=== PATIENT | male | born 1975 | race Caucasian/White ===

== ENCOUNTER 2020-08-23 12:30 | Outpatient (CLI) | payer BC, SELFPAY ==
[2020-08-24 19:53] LABS: SARS-CoV-2 RNA PCR Negative
== END 2020-08-23 12:31 | disposition home or self-care (01) ==
LOC: CHSLAB 12:36
PROVIDERS: PCP Family Medicine; Visit Provider Family Medicine
DX: Z20.828 Contact with and (suspected) exposure to other viral communicable diseases (principal)
CPT/HCPCS: 87635; C9803; U0003

== ENCOUNTER 2020-11-08 16:18 | Outpatient (CLI) | payer BC, SELFPAY ==
[2020-11-08 17:33] LABS: Influenza Control Valid (Valid); SARS-CoV-2 Ag Positive (Negative)
== END 2020-11-08 16:19 | disposition home or self-care (01) ==
LOC: CHSLAB 16:27
PROVIDERS: PCP Family Medicine; Visit Provider Family Medicine
DX: U07.1 COVID-19 (principal); J00 Acute nasopharyngitis [common cold]
CPT/HCPCS: 87426; 87804; C9803

== ENCOUNTER 2021-11-13 09:43 | Outpatient (CLI) | payer BC, SELFPAY ==
--- NOTE | ~2021-11-13 | XR_ITS ---
XR_CERV2-3V_CR DATE: 11/13/2021 10:06 INDICATION: Severe left-sided neck pain, some right-sided neck pain for 3 months TECHNIQUE: AP, open-mouth, lateral views COMPARISON: None FINDINGS: There is straightening of cervical spine. There is minimal approximately 1 to 1.5 mm anterolisthesis at C2-3 and C4-5. There is moderate degenerative disc disease at C3-4. There is mildly severe degenerative disc disease at C5-6 and C6-7. There is prominent uncovertebral joint spurring at C5-6 and C6-7. C1 and C2 are normally aligned and the odontoid process is intact. No fracture or dislocation, locked facet or prevertebral soft tissue swelling is detected.. IMPRESSION: Straightening, which may indicate muscle spasm 1.-1.5 mm anterolisthesis at C2-3 and C4-5 Moderate degenerative disc disease at C3-4 Mildly severe degenerative disc disease and prominent uncovertebral joint spurring at C5-6 and C6-7 Reviewed, dictated and finalized at Location A. Reviewed, dictated and finalized at location B. GER CHEMICAL IMPRESSION: Straightening, which may indicate muscle spasm 1.-1.5 mm anterolisthesis at C2-3 and C4-5 Moderate degenerative disc disease at C3-4 Mildly severe degenerative disc disease and prominent uncovertebral joint spurr ing at C5-6 and C6-7
--- NOTE | ~2021-11-13 | XR_ITS ---
XR lumbar spine 2-3V DATE: 11/13/2021 10:08 INDICATION: Low back pain for 3 months TECHNIQUE: AP, lateral, coned lateral lumbosacral views COMPARISON: None FINDINGS: There is grade 1 anterolisthesis at L4-5 due to degenerative change at the apophyseal joint s. There is moderately prominent degenerative disc disease throughout the lumbar interspaces, relatively sparing L5-S1. No fracture or bone destruction is evident. The included lower thoracic and lumbar pedicles are intac t. There is a transitional first sacral vertebra. The sacroiliac joints are normal. IMPRESSION: Moderate degenerative disc disease of the lumbar spine Grade 1 anterolisthesis at L4-5 due to degenerative change at the apophyseal joints Transitional first sacral vertebra Reviewed, dictated and finalized at location B. ERY MACHINE OPERATOR IMPRESSION: Moderate degenerative disc disease of the lumbar spine Grade 1 anterolisthesis at L4-5 due to degenerative change at the apophyseal etta ints Transitional first sacral vertebra
== END 2021-11-13 09:44 | disposition home or self-care (01) ==
LOC: CHSIMG 09:47
PROVIDERS: PCP Family Medicine; Visit Provider Family Medicine
DX: M54.2 Cervicalgia (principal); M54.50 Low back pain, unspecified
CPT/HCPCS: 72040; 72100

== ENCOUNTER 2022-01-23 19:36 | Outpatient (CLI) | payer BC, SELFPAY ==
--- NOTE | ~2022-01-23 | XR_ITS ---
EXAM: XR cervical spine 4-5V HISTORY: LT sided neck pain x 6 mo NKI COMPARISON: 11/13/2021 FINDINGS: Craniocervical association and atlantoaxial joint are aligned. No prevertebral soft tissue swelling. The vertebral body heights are maintained. Stable minimal degenerative listheses, degenera tive disc disease, and degenerative uncovertebral joint changes. IMPRESSION: No acute osseous finding or traumatic malalignment in the cervical spine. Reviewed, dictated and finalized at location K.
[2022-01-23 19:52] LABS: Basophils Absolute Auto 0.09 K/mm3 (0.00-0.10); Basophils Percent Auto 1.2 % (0.0-1.0); Eosinophils Percent Auto 7.8 % (1.0-6.0); Hematocrit 43.6 % (40.0-54.0); Hemoglobin 14.5 g/dL (14.0-18.0); Immature Granulocyte Absolute 0.05 K/mm3 (0.00-0.00); Immature Granulocyte Percent A 0.7 % (0.0-0.0); Lymphocytes Absolute Auto 2.15 K/mm3 (1.10-4.50); Mean Corpuscular HGB Conc 33.3 g/dL (32.0-36.0); Mean Corpuscular Hemoglobin 31.1 pg (27.0-31.0); Mean Corpuscular Volume 93.6 fL (78.0-102.0); Mean Platelet Volume 10.2 fl (8.7-11.0); Monocytes Absolute Auto 0.65 K/mm3 (0.10-0.90); Monocytes Percent Auto 8.5 % (2.0-11.0); Neutrophils Absolute Auto 4.2 K/mm3 (1.7-7.2); Neutrophils Percent Auto 53.8 % (50.0-70.0); Platelet Count Result 350 K/mm3 (150-420); Red Blood Count 4.66 M/mm3 (4.70-6.10); Red Cell Distribution Width 13.2 % (11.6-14.4); White Blood Count 7.7 K/mm3 (4.8-10.8)
[2022-01-23 20:26] LABS: Anion Gap 6 mmol/L (8-16); Blood Urea Nitrogen 21 mg/dL (7-18); Calcium 9.4 mg/dL (8.5-10.1); Carbon Dioxide 31 mmol/L (21-32); Chloride 103 mmol/L (98-108); Estimated Glomerular Filt Rate > 60; Glucose 82 mg/dL (70-99); Osmolality Calculated 292 mOsm/kg (285-295); Potassium 4.3 mmol/L (3.5-5.1); Sodium 140 mmol/L (136-145)
[2022-01-23 20:28] LABS: CRP < 0.2 mg/dL (0.0-0.9)
[2022-01-23 21:05] LABS: Erythrocyte Sedimentation Rate 8 mm/hr (0-15)
== END 2022-01-23 19:37 | disposition home or self-care (01) ==
LOC: CHSLAB 19:38
PROVIDERS: PCP Family Medicine; Visit Provider Family Medicine
DX: M54.2 Cervicalgia (principal); R53.83 Other fatigue
CPT/HCPCS: 36415; 72050; 80048; 85025; 85652; 86140

== ENCOUNTER 2024-10-12 09:01 | Outpatient (CLI) | payer BC, SELFPAY ==
--- NOTE | ~2024-10-12 | XR_ITS ---
Left Shoulder Technique: AP and scapular Y views were obtained. Clinical History: Pain Findings: No fracture or dislocation is seen. Osseous alignment is anatomic. The glenohumeral and acr omioclavicular joint spaces are preserved. Soft tissues are unremarkable. Impression: Unremarkable left shoulder radiographs. Reviewed, dictated and finalized at [facility]. SIX SIGMA SENIOR SPECIALIST Impression: Unremarkable left shoulder radiographs.
--- NOTE | ~2024-10-12 | XR_ITS ---
Left elbow Technique: AP, oblique, and lateral views were obtained. Clinical History: Pain Findings: No acute fracture or dislocation is seen. Osseous alignment is anatomic. Joint spaces are p reserved. There is no displacement of the fat pads, and soft tissues are unremarkable. Impression: Unremarkable radiographs. Reviewed, dictated and finalized at [facility]. T ETIOLOGIST Impression: Unremarkable radiographs.
== END 2024-10-12 09:02 | disposition home or self-care (01) ==
PROVIDERS: PCP Family Medicine; Visit Provider Family Medicine
DX: M25.512 Pain in left shoulder (principal); M25.522 Pain in left elbow
CPT/HCPCS: 73030; 73080

== ENCOUNTER 2024-12-01 13:22 | Outpatient (CLI) | payer BC, SELFPAY ==
--- OUTSIDE RECORDS SUMMARY | 2024-12-01 13:27 | XMS_ITS | Referral Summary ---
Author Organization [facility] Address [address] [place] [address] Care Team Providers Care Motor Vehicle Compliance Analyst Name Role Phone Pollo Werner MD Primary Care Provide r Allergies Active Allergy Reactions Criticality Noted Date Comments Ketorolac Syncope High 01/22/2022 Medications lidocaine (LIDODERM) 5 % Place 1 patch on the skin daily Remove & discard patch within 12 hours or as directed by . 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 Gender Identity Not on file Sexual Orientation Not on file Last Filed Vital Signs Vital Sign Reading Time Taken Comments Blood Pressure 118/59 01/23/2022 12:00 AM CDT Pulse 59 01/23/2022 12:00 AM CDT Temperature 36.6 C (97.8 F) 01/22/2022 9:50 PM CDT Respiratory Rate 18 01/22/2022 11:1 0 PM CDT Oxygen Saturation 99% 01/23/2022 12: 00 AM CDT Inhaled Oxygen Concentration - - Weight 96.6 kg (212 lb 15.4 oz) 01/22/2022 9:50 PM CDT Height 185.4 cm (6' 1 ) 01/22/2022 9:50 PM CDT Body Mass Index 28.1 01/22/2022 9:50 PM CDT Plan of Treatment Not on file Insurance [employer] OOS ANTH PREFERRED Care Teams Motor Vehicle Compliance Analyst Relationship Specialty Start Date End Date Pollo Werner MD [address] [place] [address] PCP - General Family Medicine 01/22/22
--- OUTSIDE RECORDS SUMMARY | 2024-12-01 13:27 | XMS_ITS | Continuity of Care Document ---
Author Organization [facility] Address [address] [place] [address] Phone Care Team Providers Care Dramatic Teacher Name Role Phone Armando Darling MD Unavailable Unavailable Allergies, Adverse Reactions, Alerts Substance Reaction Status Criticality KETOROLAC TROMETHAMINE Active No In formation Medications Medication Instructions Dosage Effective Dates (start - stop) Status Comments meloxicam 15 mg tablet take 1 tablet (15MG) by oral route every day with food - Active Keflex 500 mg capsule take 1 capsule (500MG) by oral route 4 times daily for 5 days - Active tramadol 50 mg tablet take 1-2 tablets by oral route every 6 hours as needed - Active meloxicam 15 mg tablet take 1 tablet (15MG) by oral route every day with food - No Longer Active Procedures Procedure Date RADEX KNE COMPL 4/MORE VIEWS OFFICE/OUTPATIENT VISIT EST OFFICE/OUTPATIENT VISIT EST POSTOP FOLLOW-UP VISIT POSTOP FOLLOW-UP VISIT POSTOP FOLLOW-UP VISIT OFFICE/OUTPATIENT VISIT EST MRI ANY JT LXTR C-MATRL RADEX KNE COMPL 4/MORE VIEWS POSTOP FOLLOW-UP VISIT POSTOP FOLLOW-UP VISIT POSTOP FOLLOW-UP VISIT RADEX KNE COMPL 4/MORE VIEWS POSTOP FOLLOW-UP VISIT POSTOP FOLLOW-UP VISIT OFFICE/OUTPATIENT VISIT NEW Advance Directives Directive Yes / No Effective Date File Name No Information Encounters Encounter Description Practice Location Reason(s) For Visit Diagnoses Date Provider Providers Copied on Encounter OFFICE/OUTPAT IENT VISIT EST [facility] , [address] [address], [place], [address], [place] tel:[phone] [facility] Pain in right kneeHistory of torn meniscus of right knee Jul-3 1-201 6 Dusek Armando. [address] [facility], [place], [place], [id number]. tel:[phone] OFFICE/OUTPAT IENT VISIT EST [facility] , [address] [address], [place], [address], [place] tel:[phone] [facility] Cystic meniscus, unspecified meniscus, left knee Apr- 2-201 6 Dusek Armando. [address] [facility], [place], [place], [address]. tel:[phone] [facility] , [address] [address], [place], [address], [place] tel:[phone] [facility] No Information Mar-2 4-201 6 Christopher Maharaj. [address] [facility] [address], [place], [place], [address]. tel:[phone] [facility] , [address], [address], [place] tel:[phone] [facility] Cystic meniscus, unspecified meniscus, left knee Dec-1 5-201 6 Dusek Armando. [address] [facility], [place], [place], [address]. tel:[phone] [facility] , [address], [address], [place] tel:[phone] [facility] Cystic meniscus, unspecified meniscus, left kneeHistory of torn meniscus of right knee Fe- 6-201 6 Dusek Armando. [address] [place], [place], [address]. tel:[phone] [facility] , [address], [address], [place] tel:[phone] [facility] Cystic meniscus, unspecified meniscus, left knee 5-201 6 Dusek Armando. [address] [facility] [place], [place], [address]. tel:[phone] OFFICE/OUTPAT IENT VISIT EST [facility] , [address] [address], [place], [address], [place] tel:[phone] [facility] History of torn meniscus of right kneeCyst of meniscus of right knee Aug-2 0-201 5 Dusek Armando. [address] [facility], [place], [place], [address]. tel:[phone] [facility] , [address] [place] [address], [address], [place] tel:[phone] [facility] No Information 0-201 5 No Information Referring Provider: Armando Darling, [address] [facility], [place], [address] . tel:[phone] [facility] , [address] [place] [address], [address], [place] tel:[phone] [facility] Follow Up of R Knee (chief complaint) Pain in right kneeHistory of torn meniscus of right knee Aug-0 2-201 5 Dusek Armadno. [address] [facility], [place], [place], [address]. tel:[phone] [facility] , [address] [place] [address], [address], [place] tel:[phone] [facility] History of torn meniscus of right knee 5-201 5 Dusek Armando. [address] [facility] [address], [place], [address]. tel:[phone] [facility] , [address] [place] [address], [address], [place] tel:[phone] [facility] knee torn meniscus Sep- 7-201 5 Dusek Armando. [address] [place], [place], [address]. tel:[phone] [facility] , [address], [facility], tel:[phone] [facility] Pain in joint involving lower leg 5 Dusek Armando. [address] [place], [place], [address]. tel:[phone] [facility] , [address], [facility], tel:[phone] [facility] knee torn meniscus 5 Dusek Armando. [address] [place], [place], [address]. tel:[phone] OFFICE/OUTPAT IENT VISIT NEW [facility] , [address] [place] [address], [facility], tel:[phone] [facility] R knee pain (chief complaint) knee sprain 5 Dusek Armando. [address] [place], [place], [address]. tel:[phone] Family History Family Member Type Diagnosis Age At Onset Father Problem (finding) Maternal history of sherie betes mellitus Father Problem (finding) malignant neoplasm of s kin Payers Payer name Insurance type Covered libertarian ID Authoriza tion(s) No Information Social History Type Description Quantity Date Captured Comments Alcohol Use Details Unknown Caffeine Use Details Unknown Tobacco Use Status No Information Smoking Status No Information Sex Male Chief Complaint And Reason For Visit No Information Reason For Referral Reason For Referral No Information Plan Of Treatment Date Type Action Status Referral Ordered: RADEX KNE COMPL 4/MORE VIEWS ordered Referral Ordered: CT Guided Needle Biopsy RT knee ordered Referral Ordered: RADEX KNE COMPL 4/MORE VIEWS RT knee ordered Referral Ordered: RADEX KNE COMPL 4/MORE VIEWS RT ordered Referral Ordered: MRI ANY JT LXTR C-MATRL RT knee ordered History Of Present Illness Encounter Date Complaint History Of Prese nt Illness Follow Up of R Knee R knee pain Functional Status Date Functional Assessmen t No Information Instructions Date Instruction Additional Infor mation Take medication as directed. Rel ated to knee torn meniscus Discussed treatment options Rela merritt to Pain in joint involving lower leg Assessments Type Assessment Date assessment Pain in right knee assessment History of torn meniscus of righ t knee Patient Care Teams Name Effective Dates (start - stop) Status Members No Information
--- OUTSIDE RECORDS SUMMARY | 2024-12-01 13:27 | XMS_ITS | Continuity of Care Document ---
Author Organization [facility] Address [address] [place] [address] Phone Care Team Providers Care Med Spa Manager Name Role Phone Isidoro Palmer MD Unavailable Unavailable Advance Directives Directive Yes / No Effective Date File Name No Information Encounters Encounter Description Practice Location Reason(s) For Visit Diagnoses Date Provider Providers Copied on Encounter [facility], [address], [place], [place], [address], tel:[phone] [facility] No Information Spencer Chaudhry. [address] , [place], [place], [id number], [place]. tel:[phone] Referring Provider: Armando Darling, [address], [place], [address]. tel:[phone] Family History Family Member Type Diagnosis Age At Onset No Information Payers Payer name Insurance type Covered libertarian ID Authoriza tison(s) ESIS [id number] Social History Type Description Quantity Date Captured Comments Sex Male Smoking Status No Information Chief Complaint And Reason For Visit No Information Reason For Referral Reason For Referral No Information History Of Present Illness Encounter Date Complaint History Of Prese nt Illness No Information Functional Status Date Functional Assessmen t No Information Instructions Date Instruction Additional Infor mation No Information Assessments Type Assessment Date No Information Patient Care Teams Name Effective Dates (start - stop) Status Members No Information
--- OUTSIDE RECORDS SUMMARY | 2024-12-01 13:27 | XMS_ITS | Clinical Summary ---
Author Organization [facility] Address [address] [place] [address] Care Team Providers Care Emts Name Role Phone Pollo Werner MD Primary [...] for muscle spasm 30 tablet 01/23/2022 Active Surgical History Surgery Date Site/Laterality Comments [place] RPR UMBILICAL HERNIA < 5 YRS REDUCIBLE Umbilical Hernia Repair - (Added by TW Conv) MENISCUS SURGERY Medical History Medical History Date Comments Personal history of other di seases of the circulatory system History of varicose veins - (Added by Conv) Meningitis Meniscus degeneration Family History Medical History Relation Name Comments Arthritis Father Family history of arthritis - (Added by TW Conv) Cancer Father Family history of malignant neoplasm - (Added by TW Conv) Diabetes Father Family history of diabetes mellitus - (Added by TW Conv) Relation Name Status Comments Father Social History Tobacco Use Types Packs/Day Years Used Date Smoking Tobacco: Never Sex and Gender Information Value Date Recorded Sex Assigned at Not on file 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 Gender Identity Not on file Sexual Orientation Not on file Obstetrics History Last Filed Vital Signs Vital Sign Reading [...] 01/22/2022 9:50 PM CDT Plan of Treatment Health Maintenance Due Date Last Done Comments Colon Cancer Screening-Colonoscopy 1977 Depression Screening 1977 Hepatitis C Screening 1977 Regular Well Visit/Exam 18-64 1995 Covid-19 Vaccine (2 - 2023-2 5 season) 2024 03/17/2021 Influenza Vaccine (#1) 2024 8, 08/22/2015, 07/12/2014 DTaP/Tdap/Td Vaccine (2 - Td or Tdap) 06/02/2028 06/02/2018 Hepatitis B Screening Completed 08/30/1996 , 11/05/1995, 09/22/1995 Pneumococcal vaccine <65 Aged Out No longer eligible based on patient's age to complete this topic Insurance [employer] OOS TANJA PREFERRED Care Teams Emts Relationship Specialty Start Date End Date Pollo Werner MD [address] [place] [address] PCP - General Family Medicine 01/22/22
--- OUTSIDE RECORDS SUMMARY | 2024-12-01 13:27 | XMS_ITS | Clinical Summary ---
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 Gender Identity Not on file Sexual Orientation Not on file Last Filed Vital Signs Vital Sign Reading Time Taken Comments Blood Pressure 126/76 05/06/2024 10:00 PM CDT Pulse 70 05/06/2024 10:00 PM CDT Temperature 36.6 C (97.9 F) 05/06/2024 8:37 PM CDT Respiratory Rate 20 05/06/2024 10:0 0 PM CDT Oxygen Saturation 95% 05/06/2024 10: 00 PM CDT Inhaled Oxygen Concentration - - Weight 104.1 kg (229 lb 6.4 oz) 05/06/2024 8:37 PM CDT Height 185.4 cm (6' 1 ) 05/06/2024 8:37 PM CDT Body Mass Index 30.27 05/06/2024 8:37 PM CDT Plan of Treatment Health Maintenance Due Date Last Done Comments Colorectal Cancer Screening Colonoscopy (10 Years) 1977 Annual Physical 01/22/1980 Pneumococcal Vaccine: Pediatrics (0 to 5 Years) and At-Risk Patients (6 to 64 Years) (1 of 2 - PCV) 1983 Hepatitis C 1995 Hepatitis B Vaccines (1 of 3 - 19+ 3-dose series) 01/22/1996 COVID-19 Vaccine (2 - 2023-2 5 season) 2024 03/17/2021 Influenza Adult (#1) 2024 08/05/2018, 08/22/2015, 07/12/2014 DTaP, Tdap and Td Vaccines ( 2 - Td or Tdap) 06/02/2028 06/02/2018 Meningococcal B Vaccine Aged Out No l onger eligible based on patient's age to complete this topic Meningococcal Vaccine Aged Out No yasmany ronnie eligible based on patient's age to complete this topic RSV Immunizations Under 20 Months Aged Out No longer eligible b ased on patient's age to complete this topic Insurance [employer] Care Teams History Professor Relationship Specialty Start Date End Date Pollo Werner MD [address] [place] [address] PCP - General FAMILY PRACTICE 06/18/20
--- OUTSIDE RECORDS SUMMARY | 2024-12-01 13:27 | XMS_ITS | Encounter Summary ---
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
--- NOTE | 2024-12-01 14:30 | NEURO_ITS ---
Impression: # Complains of numbness of left hand. Non-diabetic. ? # No Carpal Tunnel Syndrome. ? # Ulnar nerve with minimal slowing across the elbow. ? # Needle/EMG exam mildly abnormal in proximal muscles that deltoid, triceps and biceps. ? # Clinical correlation recommended; Higher involvement needs to be ruled out. ? # MRI of c.spine suggested. Nerve Conduction Studies Anti Sensory Summary Table ?Stim Site NR Peak (ms) P-T Amp (?V) Site1 Site2 Delta-P (ms) Dist (cm) Daljit (m/s) Left Median Anti Sensory (2-3nd Digit) Wrist ? 3.1 40.1 Wrist 2-3nd Digit 3.1 14.0 45 Wrist ? 2.9 25.3 Wrist 2-3nd Digit 3.1 14.0 45 Left Radial Anti Sensory (Base 1st Digit) Wrist ? 2.1 34.9 Wrist Base 1st Digit 2.1 0.0 Left Ulnar Anti Sensory (5th Digit) Wrist ? 2.5 18.7 Wrist 5th Digit 2.5 14.0 56 Motor Summary Table ?Stim Site NR Onset (ms) O-P Amp (mV) Site1 Site2 Delta-0 (ms) Dist (cm) Daljit (m/s) Left Median Motor (Abd Poll Brev) Wrist ? 3.0 3.3 Elbow Wrist 5.3 32.0 60 Elbow ? 8.3 4.6 Left Ulnar Motor (Abd Dig Minimi) Wrist ? 2.7 6.1 A Elbow Wrist 6.8 38.0 56 A Elbow ? 9.5 4.8 F Wave Studies ?NR F-Lat (ms) L-R F-Lat (ms) Left Median (Mrkrs) (Abd Poll Brev) ? 30.66 Left Ulnar (Mrkrs) (Abd Dig Min) ? 31.59 EMG ?Side Muscle Nerve Root Ins Act Fibs Amp Dur Recrt Comment Left 1stDorInt Ulnar C8-T1 Nml Nml Nml Nml Nml Left Ext Indicis Radial (Post Int) C7-8 Nml Nml Nml Nml Nml Left Ext Digitorum Radial (Post Int) C7-8 Nml Nml Nml Nml Nml Left BrachioRad Radial C5-6 Nml Nml Nml Nml Nml Left PronatorTeres Median C6-7 Nml Nml Nml Nml Nml Left Abd Poll Brev Median C8-T1 Nml Nml Nml Nml Nml Left ABD Dig Min Ulnar C8-T1 Nml Nml Nml Nml Nml Left Biceps Musculocut C5-6 Nml Nml Nml >12ms +1 Left Triceps Radial C6-7-8 Nml Nml Nml >12ms +1 Left Deltoid Axillary C5-6 Nml Nml Nml >12ms +1 MTDD
== END 2024-12-01 13:23 | disposition home or self-care (01) ==
LOC: ANHNEURO 13:24
PROVIDERS: PCP Family Medicine; Visit Provider Family Medicine
DX: G56.22 Lesion of ulnar nerve, left upper limb (principal)
CPT/HCPCS: 95886; 95909